=== PATIENT | female | born 1985 | race Caucasian/White ===

== ENCOUNTER 2018-06-23 05:16 | Inpatient (IN) ==
[2018-06-23] MEDS ORDERED: Oxytocin 30 Units/500ml Premix 30 UNITS/500 ML BAG ONE (07:20)
[2018-06-23] MEDS ORDERED: Oxytocin 30 Units/500ml Premix 30 UNITS/500 ML BAG IV.CONT PRN ×2 (07:20→13:32)
[2018-06-23] MEDS ORDERED: Naloxone Inj 0.4 MG/ML Vial IV.PUSH PRN ×2 (07:22→13:32)
[2018-06-23] MEDS ORDERED: Oxytocin 30 Units/500ml Premix 30 UNITS/500 ML BAG IV.SIG ONE (07:22)
[2018-06-23] MEDS ORDERED: Sod Chloride 0.9% Inj 1,000 ML IV.CONT PRN (07:22)
[2018-06-23] MEDS ORDERED: Sodium Chlor 0.9% Inj 500 ML IV.SIG PRN (07:22)
[2018-06-23] MEDS ORDERED: fentaNYL Citrate Inj 100 MCG/2 ML Ampul IV.PUSH PRN ×2 (07:22)
[2018-06-23] MEDS ORDERED: Citric Acid/Sodium Citrate Liq 30 ML UDC PO SCH (07:30)
[2018-06-23 07:56] LABS: Baso % (Auto) 0.3 % (0.0-2.0); Eos % (Auto) 0.4 % (0.0-4.0); Hematocrit 32.7 % (35.0-46.0); Hemoglobin 11.4 gm/dL (11.6-15.3); Lymph # (Auto) 2.1 th/mm3 (1.0-4.8); Lymph % (Auto) 23.4 % (9.0-44.0); Mean Corpuscular HGB Conc 34.7 % (32.0-36.0); Mean Corpuscular Hemoglobin 30.8 pg (27.0-34.0); Mean Corpuscular Volume 88.5 fL (80.0-100.0); Mean Platelet Volume 9.1 fL (7.0-11.0); Mono # (Auto) 0.7 th/mm3 (0.0-0.9); Mono % (Auto) 7.2 % (0.0-8.0); Neut # (Auto) 6.3 th/mm3 (1.8-7.7); Neut % (Auto) 68.7 % (16.0-70.0); Platelet Count 226 th/mm3 (150-450); Red Blood Count 3.69 mil/mm3 (4.00-5.30); Red Cell Distribution Width 13.9 % (11.6-17.2); White Blood Count 9.2 th/mm3 (4.0-11.0)
--- NOTE | 2018-06-23 08:01 | P.HPOB ---
History of Present Illness Service: 33 yo wf at 39 1/2 weeks with Bishopas score of 8 ( 3 cm/50/-2/soft and anterior with BBOW) here for social arom and delivery. GBS -. History of unremarkable term five years ago. No leaking, bleeding GFM No symptoms of pre eclampsia. No GDM or PTL. Primary Care Physician: Jeanette Rizvi MD Chief Complaint: social induction History of Present Illness: see above under service - Inpatient Certification I certify that the inpatient services were ordered in accordance with Medicare regulations governing the order. This includes certification that hospital inpatient services are reasonable and necessary and in the case of services not specified as inpatient-only under 42 CFR 419.22(n), that they are appropriately provided as inpatient services in accordance to with the 2-midnight benchmark under 43 CFR 412.3(e) Estimated Total Length of Stay (Days): 2 Plans for Post Hospital Care: Home Review of Systems All other systems reviewed negative except as stated in HPI [facility] - History History Provided By: Patient - Medical / Surgical Hx Neg / Unobtainable Medical Problems Denied: Yes Surgical History: No Previous Surgery - Social History I have reviewed the patient's Social History: Yes Medications and Allergies Active Medications: Active Medications Citric Acid/Sodium Citrate (Sodium Citrate/Citric Acid Liq) 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 [facility] Stop: 06/27/18 07:29 Fentanyl Citrate (Fentanyl Inj) 50 mcg IV.PUSH Q1H PRN PRN Reason: Pain Scale 3 - 5 Fentanyl Citrate (Fentanyl Inj) 100 mcg IV.PUSH Q1H PRN PRN Reason: PAIN SCALE 6 TO 10 Oxytocin (Pitocin 30 Units/Ns 500 Ml Premix) 30 units in 500 mls @ 2 mls/hr IV.CONT TITRATE PRN; Protocol PRN Reason: For induction of labor Lactated Ringer's (Lr 1000 Ml Inj) 1,000 mls @ 3,000 mls/hr IV.SIG UNSCH PRN PRN Reason: compromise or epidural Lactated Ringer's (Lr 1000 Ml Inj) 1,000 mls @ 125 mls/hr IV.CONT .Q8H [facility] Sodium Chloride (Ns Inj) 500 mls @ 1,000 mls/hr IV.SIG UNSCH PRN PRN Reason: SEE LABEL COMMENTS Sodium Chloride (Ns Inj) 1,000 mls @ 100 mls/hr IV.CONT .Q10H PRN PRN Reason: SEE LABEL COMMENTS Lidocaine HCl (Xylocaine 1% Inj) 0.1 ml I-DERMAL PRN PRN PRN Reason: For IV start Stop: 06/26/18 07:21 Lidocaine HCl (Xylocaine 1% Inj) 10 ml INFILTRATN PRN PRN PRN Reason: For episiotomy repair Stop: 06/25/18 07:21 Mineral Oil (Muri-Lube Oil) 10 ml TOPICAL PRN PRN PRN Reason: PRN perineal massage Naloxone HCl (Narcan Inj) 0.1 mg IV.PUSH Q2M PRN PRN Reason: for opiate reversal Ondansetron HCl (Zofran Inj) 4 mg IV.PUSH Q6H PRN PRN Reason: NAUSEA OR VOMITING Allergies Allergy/AdvReac Type Severity Reaction Status Date / Time No Known Allergies Allergy Uncoded 04/01/13 02:25 Exam Vital signs: Vital Signs 06/23/18 05:50 Temperature 98.1 F Pulse Rate 101 H Respiratory Rate 18 Blood Pressure 127/75 Intake & Output 06/22/18 06/23/18 06/23/18 18:59 06:59 18:59 Weight 69.853 kg - Constitutional no acute distress - Routine HEENT Exam Head: Present: normocephalic Eye: Present: PERRL ENT: Present: mucous membranes moist - Routine Neck Exam Present: supple - Routine Respiratory Exam Present: CTA bilaterally - Routine Cardiovascular Exam Present: RRR - Routine Abdominal Exam Present: soft - Routine Skin Exam Present: intact - Routine Neurological Exam Present: alert, oriented X3 Results - Labs CBC & Chem 7: 06/23/18 06:00 Caprini VTE Risk Assessment Caprini VTE Risk Assessment: No/Low Risk (score <= 1) Caprini Risk Assessment Model: Point Value = 1 Point Value = 2 Point Value = 3 Point Value = 5 Age 41-60 Minor surgery BMI > 25 kg/m2 Swollen legs Varicose veins or History of unexplained or recurrent spontaneous Oral contraceptives or hormone replacement Sepsis (< 1 month) Serious lung disease, including pneumonia (< 1 month) Abnormal pulmonary function Acute myocardial infarction Congestive heart failure (< 1 month) History of inflammatory bowel disease Medical patient at bed rest Age 61-74 Arthroscopic surgery Major open surgery (> 45 min) Laparoscopic surgery (> 45 min) Malignancy Confined to bed (> 72 hours) Immobilizing plaster cast Central venous access Age >= 75 History of VTE Family history of VTE Factor V Leiden Prothrombin [id number] Lupus anticoagulant Anticardiolipin antibodies Elevated serum homocysteine Heparin-induced thrombocytopenia Other congenital or acquired thrombophilia Stroke (< 1 month) Elective arthroplasty Hip, pelvis, or leg fracture Acute spinal cord injury (< 1 month) Prophylaxis Regimen: Total Risk Factor Score Risk Level Prophylaxis Regimen 0-1 Low Early ambulation 2 Moderate Order ONE of the following: *Sequential Compression Device (SCD) *Heparin 5000 units SQ BID 3-4 Higher Order ONE of the following medications: *Heparin 5000 units SQ TID *Enoxaparin/Lovenox 40 mg SQ daily (WT < 150 kg, CrCl > 30 mL/min) *Enoxaparin/Lovenox 30 mg SQ daily (WT < 150 kg, CrCl > 10-29 mL/min) *Enoxaparin/Lovenox 30 mg SQ BID (WT < 150 kg, CrCl > 30 mL/min) AND/OR *Sequential Compression Device (SCD) 5 or more Highest Order ONE of the following medications: *Heparin 5000 units SQ TID (Preferred with Epidurals) *Enoxaparin/Lovenox 40 mg SQ daily (WT < 150 kg, CrCl > 30 mL/min) *Enoxaparin/Lovenox 30 mg SQ daily (WT < 150 kg, CrCl > 10-29 mL/min) *Enoxaparin/Lovenox 30 mg SQ BID (WT < 150 kg, CrCl > 30 mL/min) AND *Sequential Compression Device (SCD) Assessment and Plan - Diagnosis (1) 39 weeks gestation of Code(s): Z3A.39 - 39 weeks gestation of Status: Acute - Plan plan ruptured with clear fluid now strip reactive anticipate augment and epidural as needed
[2018-06-23 08:23] LABS: Bacteria,Urine Rare /hpf; Bilirubin,Urine Negative (Negative); Clarity,Urine Clear (Clear); Color,Urine Yellow (Yellw/Straw); Glucose,Urine (UA) Negative (Negative); Leukocyte Esterase,Urine Moderate (Negative); Mucus,Urine Few /lpf (Occasional); Nitrite,Urine Negative (Negative); Specific Gravity,Urine 1.009 (1.002-1.035); Squamous Epithelial Cell,Urine 6 /hpf (0-5)
[2018-06-23] MEDS ORDERED: Bupivacaine PF 0.25% Inj 10 ML Vial ONE (09:11)
[2018-06-23] MEDS ORDERED: fentaNYL 2MCG-Bupiv 0.125% Epi 150 ML EPIDURAL ONE (09:15)
--- NOTE | 2018-06-23 09:40 | P.OBLABOR ---
Subjective Interval history: Desires epidural continuing to leak clear fluid Objective Vital Signs: Vital Signs - 8 hr 06/23/18 05:50 06/23/18 08:03 06/23/18 09:25 Temperature 98.1 F Pulse Rate 101 H 85 102 H Respiratory Rate 18 18 Blood Pressure 127/75 110/64 130/76 06/23/18 09:30 Temperature Pulse Rate 96 H Respiratory Rate Blood Pressure 124/75 Objective: Pelvic Exam: /-2 strip reactive Weeks Gestation: 39 Patient Started Active Labor: Yes Medical Induction of Labor: Yes Medical Induction Start Date: 06/23/18 Medical Induction Start Time: 09:39 Artificial Rupture of Membrane: Yes Artificial ROM Date: 06/23/18 Artificial ROM Time: 09:40 Assessment and Plan - Diagnosis (1) 39 weeks gestation of Code(s): Z3A.39 - 39 weeks gestation of Status: Acute - Plan plan ruptured with clear fluid now strip reactive anticipate augment and epidural as needed 9:30 receiving epidural now anticipate
[2018-06-23] MEDS ORDERED: Bisacodyl 10 MG Supp RECTAL PRN (13:32)
[2018-06-23] MEDS ORDERED: Benzocaine 20% Top Spray 60 ML Can TOPICAL PRN (13:32)
[2018-06-23] MEDS ORDERED: Witch Hazel 50%/Glyderin 12.5% 40 Pad Jar RECTAL PRN (13:32)
[2018-06-23] MEDS ORDERED: Acetaminophen 325 MG Tablet PO PRN (13:32)
--- NOTE | 2018-06-23 13:32 | P.OBDELI ---
Weeks Gestation: 39 Patient Started Active Labor: Yes Medical Induction of Labor: Yes Artificial Rupture of Membrane: Yes Anesthesia: Epidural Episiotomy: none Vaginal Delivery: Normal Presentation: Occiput anterior Nuchal Cord: x1 Delayed Cord Clamping (45 sec): Yes Placenta: Spontaneous delivery, Intact, 3 vessel cord Laceration: 1 deg Repair: Chromic interrupted Estimated blood loss (mL): 200 Infant: Male Male A score (1 min): 8 score (5 min): 9
[2018-06-23 15:44] VITALS: RESP 18
[2018-06-23] MEDS ORDERED: Diphtheria/Tetanus/Pertussis Vaccine Inj 0.5 ML Syringe IM ONE (16:00)
[2018-06-23] MEDS ORDERED: Measles/Mumps/Rubella Vaccine Inj 0.5 ML Vial SQ ONE (16:00)
[2018-06-23] MEDS ORDERED: Zolpidem Tartrate 5 MG Tablet PO PRN (21:00)
[2018-06-23] MEDS ORDERED: Senna/Docusate Sodium 8.6/50 MG Tablet PO SCH (21:00)
[2018-06-24 08:20] VITALS: BP 105/69; PULSE 92
[2018-06-24 08:21] VITALS: TEMP 98.2
--- NOTE | 2018-06-24 09:49 | P.PNOB ---
Subjective Post day: 1 Interval history: doign well, desires to be d/c Objective Vital Signs/I&O: Vital Signs 06/23/18 10:00 06/23/18 10:10 06/23/18 10:25 Temperature 97.9 F Pulse Rate 73 92 H 90 Respiratory Rate 20 16 Blood Pressure 113/64 120/41 L 115/64 06/23/18 10:40 06/23/18 11:00 06/23/18 11:10 Temperature Pulse Rate 85 89 Respiratory Rate 18 Blood Pressure 120/71 110/93 H 06/23/18 12:00 06/23/18 12:25 06/23/18 12:40 Temperature 98.2 F Pulse Rate 67 77 118 H Respiratory Rate 18 Blood Pressure 98/54 L 100/52 L 118/55 L 06/23/18 12:50 06/23/18 13:00 06/23/18 13:26 Temperature Pulse Rate 95 H 92 H 84 Respiratory Rate 18 20 Blood Pressure 103/80 108/75 109/62 06/23/18 13:30 06/23/18 13:35 06/23/18 13:46 Temperature 98.1 F Pulse Rate 74 78 Respiratory Rate 20 Blood Pressure 105/71 111/61 06/23/18 14:00 06/23/18 14:16 06/23/18 14:30 Temperature Pulse Rate 86 85 82 Respiratory Rate 18 16 Blood Pressure 107/67 110/62 111/62 06/23/18 14:45 06/23/18 14:46 06/23/18 15:00 Temperature Pulse Rate 85 75 Respiratory Rate 16 Blood Pressure 91/77 L 97/78 L 06/23/18 15:15 06/23/18 16:00 06/23/18 20:00 Temperature 98.4 F 98.3 F Pulse Rate 74 80 78 Respiratory Rate 18 18 18 Blood Pressure 108/56 L 94/69 L 116/69 06/24/18 08:00 Temperature 98.2 F Pulse Rate 92 H Respiratory Rate 18 Blood Pressure 105/69 Intake & Output 06/23/18 06/24/18 06/24/18 18:59 06:59 18:59 Weight 69.853 kg Result Diagrams: 06/23/18 06:00 Objective Remarks: GENERAL: Well-nourished, well-developed patient. CARDIOVASCULAR: Regular rate and rhythm without murmurs, gallops, or rubs. RESPIRATORY: Breath sounds equal bilaterally. No accessory muscle use. ABDOMEN/GI: Abdomen soft, non-tender. Fundus: Firm, non-tender at umbilicus. GENITOURINARY: Light to moderate bleeding. EXTREMITIES: No cyanosis or edema, non-tender, without signs of DVT. 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[employer] [facility] Stop: 06/27/18 07:29 Fentanyl Citrate (Fentanyl Inj) 50 mcg IV.PUSH Q1H PRN PRN Reason: Pain Scale 3 - 5 Fentanyl Citrate (Fentanyl Inj) 100 mcg IV.PUSH Q1H PRN PRN Reason: PAIN SCALE 6 TO 10 Lactated Ringer's (Lr 1000 Ml Inj) 1,000 mls @ 3,000 mls/hr IV.SIG UNSCH PRN PRN Reason: compromise or epidural Last Admin: 06/23/18 08:58 Dose: 3,000 mls/hr Lactated Ringer's (Lr 1000 Ml Inj) 1,000 mls @ 125 mls/hr IV.CONT .Q8H [facility] Last Admin: 06/24/18 00:24 Dose: Not Given Sodium Chloride (Ns Inj) 500 mls @ 1,000 mls/hr IV.SIG UNSCH PRN PRN Reason: SEE LABEL COMMENTS Sodium Chloride (Ns Inj) 1,000 mls @ 100 mls/hr IV.CONT .Q10H PRN PRN Reason: SEE LABEL COMMENTS Oxytocin (Pitocin 30 Units/Ns 500 Ml Premix) 30 units in 500 mls @ 100 mls/hr IV.CONT UNSCH PRN PRN Reason: Heavy bleeding Ibuprofen (Motrin) 800 mg PO Q8H PRN PRN Reason: For Cramping Last Admin: 06/24/18 00:49 Dose: 800 mg Lactulose (Lactulose Liq) 30 ml PO DAILY PRN PRN Reason: SEVERE CONSITIPATION Lidocaine HCl (Xylocaine 1% Inj) 0.1 ml I-DERMAL PRN PRN PRN Reason: For IV start Stop: 06/26/18 07:21 Lidocaine HCl (Xylocaine 1% Inj) 10 ml INFILTRATN PRN PRN PRN Reason: For episiotomy repair Stop: 06/25/18 07:21 Mineral Oil (Muri-Lube Oil) 10 ml TOPICAL PRN PRN PRN Reason: PRN perineal massage Naloxone HCl (Narcan Inj) 0.1 mg IV.PUSH Q2M PRN PRN Reason: for opiate reversal Ondansetron HCl (Zofran Odt) 4 mg PO Q6H PRN PRN Reason: NAUSEA OR VOMITING Senna/Docusate Sodium (Elizabeth-Colace) 1 tab PO BID [facility] Last Admin: 06/23/18 20:39 Dose: 1 tab Sennosides (Senokot) 17.2 mg PO Q12H PRN PRN Reason: Moderate Constipation Sodium Chloride (Ns Flush) 2 ml IV.FLUSH BID [facility] Last Admin: 06/23/18 20:41 Dose: 2 ml Sodium Chloride (Ns Flush) 2 ml IV.FLUSH PRN PRN PRN Reason: FLUSH AFTER USING IV ACCESS Witch Venita/Glycerin (Tucks Pads) 1 applicatio RECTAL QID PRN PRN Reason: HEMORRHOIDS Last Admin: 06/23/18 20:39 Dose: 1 applicatio Zolpidem Tartrate (Ambien) 5 mg PO HS PRN PRN Reason: SLEEP Assessment and Plan - Diagnosis (1) 39 weeks gestation of Code(s): Z3A.39 - 39 weeks gestation of Status: Acute - Plan ppd 1 cont routine pp care dispo home today
== END 2018-06-24 15:27 | disposition home or self-care (01) ==
LOC: H2E 05:16 → H1EA 15:30
PROVIDERS: ADMIT Obstetrics & Gynecology; ATTEND Obstetrics & Gynecology